=== PATIENT | male | born 1990 | race Caucasian/White ===

== ENCOUNTER → 2020-04-25 17:11 | Outpatient (CLI) | payer OTHER, SELFPAY ==
--- NOTE | 2020-04-25 | DI.MRI.S_ITS ---
PROCEDURE: MR ANKLE RT WO CON INDICATIONS: Pain in right ankle and joints of right foot TECHNIQUE: Noncontrast sagittal T1 spin echo and T2 fast spin echo with fat saturation, axial proton density fast spin echo and T2 fast spin echo with fat saturation, coronal T1 spin echo and T2 fast spin echo with fat saturation through the ankle/hindfoot. COMPARISON: None. FINDINGS: Image quality: Excellent. Bones and joints: No bone marrow contusions or fractures. Within the head of the talus, there is a predominantly cystic appearing T2 hyperintense multiloculated lesion with sclerotic margins. Within it, however there is a possible solid (versus complex cystic) component seen on image 12/6, image 18/3 which could be further assessed with dedicated contrast-enhanced MRI. This measures 2.6 x 2.3 cm on axial image 21/4, and approximately 2.0 cm in the cephalocaudad dimension. On axial image 22/4 there are multiple fluid fluid levels seen. No definite marrow edema is seen. No pathologic fracture identified No hindfoot coalitions. No osteochondral injuries of the talar dome. No pathologic joint effusions. Medial structures: Posterior tibialis intact. Flexor digitorum longus intact. Flexor hallucis longus tendon intact. The posterior tibial neurovascular bundle appears normal within the tarsal tunnel, without extrinsic mass effect. Deltoid ligament complex appears intact. The spring ligament appears intact. Lateral structures: Anterior talofibular ligament intact. Calcaneofibular ligament intact. Posterior talofibular ligament intact. Anterior and posterior tibiofibular ligaments appear intact, as is the intermalleolar ligament. Tibiofibular syndesmosis is normal in width at 2 mm or less. Peroneus longus and brevis tendons demonstrate normal location and morphology. Bony peroneal tubercle and retrotrochlear prominence are normal in size. Sinus tarsi demonstrates normal fatty signal, without edema, fibrosis, or cyst formation. Anterior structures: Tibialis anterior intact. Extensor hallucis longus intact. Extensor digitorum longus tendon intact. Dorsal talonavicular ligament appears intact. Posterior and plantar structures: Achilles tendon is intact. Medial and lateral bands of the plantar fascia intact. No abductor digiti quinti muscle atrophy to suggest Pina neuropathy. IMPRESSION: Large, probably cystic appearing lesion within the head of the talus, although some component may be solid and would be further assessed with contrast-enhanced MRI. Additionally, multiple fluid-fluid levels are seen. Differential includes aneurysmal bone cyst, however statistically less likely other malignant possibilities cannot be excluded including giant cell tumor, telangiectatic osteosarcoma, or other possibilities. Other benign etiologies include fibrous dysplasia. Theoretically, there is possible increased risk of pathologic fracture. Recommend orthopedic surgical consultation and management. Elsewhere, no internal derangement. Dictated by: Gamal Glover M.D. on 04/26/2020 at 8:21 Approved by: Gamal Glover M.D. on 04/26/2020 at 9:07
== END ==
PROVIDERS: Referring Provider Student in an Organized Health Care Education/Training Program; Visit Provider Student in an Organized Health Care Education/Training Program
DX: M25.571 Pain in right ankle and joints of right foot (principal)
CPT/HCPCS: 73721

== ENCOUNTER → 2020-06-08 07:48 | Outpatient (CLI) | payer OTHER, SELFPAY ==
--- NOTE | 2020-06-08 | DI.MRI.S_ITS ---
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 Post-contrast axial, coronal, and sagittal T1 spin echo with fat saturation through the ankle/hindfoot. COMPARISON: [facility], MR, MR ANKLE RT WO CON, 04/25/2020, 17:18. FINDINGS: Image quality: Excellent. Within the head and neck of the talus, there is a 2.4 by 2.8 x 1.9 cm well-marginated lesion with predominantly T2 hyperintense appearance and sclerotic margins. No adjacent marrow edema is seen. There is a enhancing component within it, measuring the 1.3 x 0.8 cm on image 20/10. There are fluid fluid levels. No fracture identified. Remaining marrow signal intensity within normal limits. Mild peroneal tenosynovitis IMPRESSION: Redemonstration of large lesion within the head and neck of the talus, with possible internal enhancing component. No adjacent marrow edema and sclerotic appearance of the margins. Findings suggest aneurysmal bone cyst although given the postcontrast enhanced pulse sequences on the current study, this may be related to underlying solid benign or malignant neoplasm such as giant cell tumor, however cannot exclude malignant possibilities as previously reported. As before, recommend oncologic orthopedic surgical consultation, and management if not already performed. Theoretically, there is a increased risk of pathologic fracture. Dictated by: Gamal Glover M.D. on 06/08/2020 at 10:01 Approved by: Gamal Glover M.D. on 06/08/2020 at 10:13
== END ==
PROVIDERS: Referring Provider Orthopaedic Surgery; Visit Provider Orthopaedic Surgery
DX: D16.21 Benign neoplasm of long bones of right lower limb (principal)
CPT/HCPCS: 73723; A9579

== ENCOUNTER 2022-10-02 11:20 | Emergency (ER) | payer OTHER, SELFPAY ==
[2022-10-02 11:30] VITALS: BP 154/84; PULSE 89; RESP 14; TEMP 36.8; O2SAT 98; BMI 23.6
--- NOTE | 2022-10-02 11:35 | DI.RAD.S_ITS ---
PROCEDURE: XR ANKLE LT MIN 3V INDICATIONS: rolled ankle TECHNIQUE: 3 views of the ankle were acquired. COMPARISON: None. FINDINGS: Bones: Acute mildly displaced fracture of the lateral malleolus, fracture at the level of the tibial plafond and.. Ankle mortise is normally aligned. No suspicious bony lesions. Soft tissues: Probable tibiotalar joint effusion. Soft tissue swelling is present about the ankle. IMPRESSION: Acute mildly displaced lateral malleolus fracture. Dictated by: Dayne Duggan M.D. on 10/02/2022 at 11:22 Approved by: Dayne Duggan M.D. on 10/02/2022 at 11:25
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
[2022-10-02] MEDS: KETOROLAC 10 MG TABLET PO (12:41)
[2022-10-02] MEDS: ACETAMINOPHEN 325 MG TABLET 975 MG PO (12:41)
[2022-10-02 13:12] VITALS: BP 142/83; PULSE 81; O2SAT 92
== END 2022-10-02 13:17 | disposition home or self-care (01) ==
PROVIDERS: Emergency Provider Nurse Practitioner Critical Care Medicine
DX: S82.62XA Displaced fracture of lateral malleolus of left fibula, initial encounter for closed fracture (principal); X50.1XXA Overexertion from prolonged static or awkward postures, initial encounter
CPT/HCPCS: 73610; 99283

== ENCOUNTER → 2024-04-16 15:36 | Outpatient (CLI) | payer OTHER, SELFPAY ==
--- NOTE | 2024-04-16 15:43 | DI.RAD.S_ITS ---
PROCEDURE: XR ANKLE RT MIN 3V INDICATIONS: BONE CYST TECHNIQUE: 3 views of the ankle were acquired. COMPARISON: [facility], MR, MR ANKLE RT WO/W CON, 06/08/2020, 8:00. [facility], CR, XR ANKLE 3 VIEWS WEIGHT BEARING LEFT, 10/08/2022, 13:57. [facility], CR, XR ANKLE LT MIN 3V, 10/02/2022, 11:52. Outside Facility, RG, XR ANKLE 2V RIGHT, 01/17/2023, 13:14. FINDINGS: Bones: No fractures or dislocations. Ankle mortise is normally aligned. No aggressive bone lesion. No periosteal reaction. Mild osteoarthritic changes. Soft tissues: No tibiotalar joint effusion. Achilles tendon appears normal. IMPRESSION: 1. No suspicious bone lesions are seen on plain radiograph. Consider MRI for further follow-up if clinically indicated. Dictated by: Alessandra Ware M.D. on 04/16/2024 at 16:50 Approved by: Alessandra Ware M.D. on 04/16/2024 at 16:55
== END ==
LOC: RAD 15:41
PROVIDERS: Referring Provider Physician Assistant Medical; Visit Provider Physician Assistant Medical
DX: M85.571 Aneurysmal bone cyst, right ankle and foot (principal)
CPT/HCPCS: 73610

== ENCOUNTER → 2025-05-03 16:31 | Outpatient (CLI) | payer BC, SELFPAY ==
--- NOTE | 2025-05-03 16:38 | DI.RAD.S_ITS ---
PROCEDURE: XR ANKLE RT MIN 3V INDICATIONS: ROUTINE Additional history: Prior bone cyst. TECHNIQUE: 3 views of the ankle were acquired. COMPARISON: [facility], MR, MR ANKLE RT WO/W CON, 06/08/2020, 8:00. [facility], CR, XR ANKLE RT MIN 3V, 04/16/2024, 15:43. FINDINGS: Bones: No fractures or dislocations. Ankle mortise is normally aligned. Subtle heterogeneity at the anterior talus. Soft tissues: No tibiotalar joint effusion. Achilles tendon appears normal. IMPRESSION: No significant interval change. Subtle heterogeneity at the anterior talus in the region of the previously seen bones cysts. Dictated by: Smooth Hendrix M.D. on 05/04/2025 at 13:21 Approved by: Smooth Hendrix M.D. on 05/04/2025 at 13:24
== END ==
PROVIDERS: Referring Provider Physician Assistant Medical; Visit Provider Physician Assistant Medical
DX: M85.571 Aneurysmal bone cyst, right ankle and foot (principal)
CPT/HCPCS: 73610